=== PATIENT | male | born 1950 | race Caucasian/White ===

== ENCOUNTER 2018-01-22 16:36 | Emergency (ER) | payer OTHER ==
[~2018-01-22] VITALS: Ht 170.2 cm; Wt 92.1 kg
[2018-01-22] MEDS ORDERED: HYDROCHLOROTHIA25 M1 PO (18:58)
[2018-01-22] MEDS ORDERED: LOSARTAN POTAS100 M1 PO (18:59)
[2018-01-22] MEDS ORDERED: CIPRODEX OTIC7.5 ML OT (19:01)
--- NOTE | 2018-01-22 19:05 | ED EAR COMPLAINT ---
History of Present Illness General Chief Complaint: Ear Complaints Stated Complaint: PT NEEDS HIS RT EAR CHECK OUT Source: patient Exam Limitations: no limitations Vital Signs & Intake/Output Vital Signs & Intake/Output Vital Signs Date Time Temp Pulse Resp B/P B/P Pulse O2 O2 Flow FiO2 Mean Ox Delivery Rate 01/22 1915 97.5 88 18 138/86 97 Room Air Room Air 01/22 1638 97.3 95 18 143/88 98 Room Air Room Air Allergies Coded Allergies: No Known Allergies (01/22/18) Reconcile Medications Ciprofloxacin HCl/Dexameth (Ciprodex Otic Suspension) 0.3 %-0.1 % DROPS.SUSP 4 GTT OT BID Otitis Externa Hydrochlorothiazide 25 MG TABLET 1 TAB PO DAILY HTN (Reported) Losartan Potassium 100 MG TABLET 1 TAB PO DAILY HTN (Reported) Triage Note: PT TO ED WITH C/O "MY RIGHT EAR IS BLOCKED" X 3 DAYS. DIDN'T NOT SEE PMD. Triage Nurses Notes Reviewed? yes HPI: 67 yo M PMH HTN, HLD, DM presenting with hearing change. Progressive decreased hearing from right ear for the last week, much worse in the last 3 days. Denies associated fevers, chills, neck pain, neck stiffness, headache, focal neurologic Sx, ear pain, ear drainage, or post-auricular pain or swelling. (Fuad CASTANEDA,Lexa) Past History Travel History Traveled to [place] past 21 day No Medical History Any Pertinent Medical History? 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 Yes (Lexa Merida MD) Review of Systems Review of Systems Constitutional: Reports: no symptoms. EENTM: Reports: no symptoms. Respiratory: Reports: no symptoms. Cardiovascular: Reports: no symptoms. GI: Reports: no symptoms. Genitourinary: Reports: no symptoms. Musculoskeletal: Reports: no symptoms. Skin: Reports: no symptoms. Neurological/Psychological: Reports: no symptoms. Hematologic/Endocrine: Reports: no symptoms. Immunologic/Allergic: Reports: no symptoms. All Other Systems: Reviewed and Negative (Fuad CASTANEDA,Lexa) Physical Exam Physical Exam General Appearance: well developed/nourished, mild distress Head: atraumatic Ears: Right: other. Neck: normal inspection, supple Cardiovascular/Respiratory: normal breath sounds, regular rate/rhythm Back: normal inspection Neurologic/Psych: awake, alert, oriented x 3, normal mood/affect Skin: intact, normal color, warm/dry Comments: Right Ear: Cerumen impaction, No active drainage, No pain with movement of pinna , No TTP or post-auricular swelling C-Spine: Full ROM without pain (Fuad CASTANEDA,Lexa) Progress Differential Diagnoses I considered the following diagnoses in my evaluation of the patient: Plan of Care: Physician MDM: 67 yo M PMH HTN, HLD, DM presenting with hearing change. VSS, TM exam as above. DDx: Cerumen impaction, less likely otitis externa without pain, low concern for malignant otitis externa despite Hx of DM, low concern for mastoiditis, low concern for [employer] hearing loss or vestibular schwanoma. Cerumen removed with minimal discomfort using curette and irrigation, TM visualized behind remaining wax/debris and unperforated, ?inflammatory debris in ear canal, will cover for otitis externa despite lack of ear pain. Hearing improved s/p cereumen removal and irrigation, low concern for neurologic cause of hearing loss. Patient given teaching about malignant otitis externa and return precautions for ear painor fevers, he plans to follow up with his PMD in the next 2-3 days for further evaluation and treatment ("they had to suck the wax out in the office last time"). Discharged with ciprodex otic drops and return precautions. Initial ED EKG: none (Fuad CASTANEDA,Lexa) Departure Departure Disposition: HOME OR SELF CARE Condition: Stable Clinical Impression Primary Impression: Otitis externa Secondary Impressions: Impacted ear wax Referrals: Aly ACSTANEDA,Grayson Bal MD,Aurora Kaminski MD,Nany Miner MD,Shiva Huitron MD,Cody Min (PCP/Family) Tamiko CASTANEDA,Trevon Additional Instructions: Begin using ciprodex drops in your right ear. Follow up with your primary care physician in the next 2-3 days. Follow up with one of the ENT physicians listed in your discharge paperwork. Return to the ED for any new, worsening, or concerning symptoms. Departure Forms: Customer Survey General Discharge Information Prescriptions: Current Visit Scripts Ciprofloxacin HCl/Dexameth (Ciprodex Otic Suspension) 4 GTT OT BID #1 BOT (Fuad CASTANEDA,Lexa) Resident Co-Sign Statement Statement: ED Attending supervision documentation- [] I saw and evaluated the patient. I have also reviewed all the pertinent lab results and diagnostic results. I agree with the findings and the plan of care as documented in the Resident's documentation. [x] I have reviewed the ED Record and agree with the Resident's documentation. [] Additions or exceptions (if any) to the Resident's note and plan are summarized below: [] (Ric Rivas DO
[2018-01-22 19:15] VITALS: BP 138/86
== END 2018-01-22 19:15 ==
LOC: ERH 16:36
DX: H60.91 Unspecified otitis externa, right ear (principal); H61.21 Impacted cerumen, right ear; F17.210 Nicotine dependence, cigarettes, uncomplicated